=== PATIENT | female | born 2000 | race Hispanic/Latino ===

== ENCOUNTER 2024-06-06 12:31 | Emergency (ER) | payer OTHER, BC ==
[~2024-06-06] VITALS: Ht 154.9 cm; Wt 81.6 kg
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
[2024-06-06] MEDS ORDERED: IBUP-2077 PO (15:49)
[2024-06-06 16:49] VITALS: BP 124/78; PULSE 62; RESP 18; TEMP 97.6; O2SAT 97
[2024-06-06] MEDS: acetaMINOPHEN 500 MG TABLET PO ONE (16:57)
== END 2024-06-06 17:16 | disposition home or self-care (01) ==
LOC: EDH 12:31
DX: S39.012A Strain of muscle, fascia and tendon of lower back, initial encounter (principal); S80.811A Abrasion, right lower leg, initial encounter; S50.811A Abrasion of right forearm, initial encounter; Z79.899 Other long term (current) drug therapy; V49.9XXA Car occupant (driver) (passenger) injured in unspecified traffic accident, initial encounter; Y93.89 Activity, other specified; Y92.488 Other paved roadways as the place of occurrence of the external cause; Y99.8 Other external cause status
CPT/HCPCS: 36415; 72100; 84703; 99284

== ENCOUNTER 2024-09-07 11:46 | Emergency (ER) | payer OTHER, BC ==
[~2024-09-07] VITALS: Ht 157.5 cm; Wt 79.4 kg
[~2024-09-07 11:46] MED LIST: IBUP-2077 PO
[2024-09-07 11:50] VITALS: BP 114/72
[2024-09-07 12:40] LABS: BASOPHILS # (AUTO) 0.01 K/uL (0.00-0.20); BASOPHILS % (AUTO) 0.1 % (0.0-5.0); EOSINOPHILS # (AUTO) 0.04 K/uL (0.00-0.70); EOSINOPHILS % (AUTO) 0.5 % (0.0-8.0); HEMATOCRIT 41.6 % (36-48); IMMATURE GRANULOCYTE ABSOLUTE 0.02 K/uL (0-1); LYMPHOCYTES # (AUTO) 1.9 K/uL (1.0-4.8); LYMPHOCYTES % (AUTO) 25.3 % (21.0-51.0); MEAN CORPUSCULAR HEMOGLOBIN 28.6 pg (27.0-33.0); MEAN CORPUSCULAR HGB CONC 33.2 g/dL (32.0-36.0); MEAN CORPUSCULAR VOLUME 86.1 fL (79-99); MONOCYTES # (AUTO) 0.5 K/uL (0.1-1.0); MONOCYTES % (AUTO) 6.5 % (3.0-13.0); NEUTROPHILS % (AUTO) 67.3 % (40.0-77.0); PLATELET COUNT (AUTO) 280 K/uL (130-400); RED BLOOD CELL COUNT(AUTO) 4.83 MIL/uL (4.00-5.50); RED CELL DISTRIBUTION WIDTH 12.9 % (11.0-15.5); WHITE BLOOD COUNT (AUTO) 7.4 K/uL (4.8-10.8)
[2024-09-07 12:41] LABS: APPEARANCE,URINE CLEAR (CLEAR); BILIRUBIN,URINE NEGATIVE (NEGATIVE); COLOR,URINE COLORLESS (YELLOW); GLUCOSE, URINE (UA) NEGATIVE (NEGATIVE); KETONES,URINE NEGATIVE (NEGATIVE); LEUKOCYTE ESTERASE ,URINE NEGATIVE Leu/uL (NEGATIVE); NITRATE,URINE NEGATIVE (NEGATIVE); OCCULT BLOOD,URINE MODERATE (NEGATIVE); PH,URINE 6.5 (5.0-8.0); PROTEIN,URINE NEGATIVE (NEGATIVE); UROBILINOGEN,URINE 0.2 mg/dL (0.2-1.0)
[2024-09-07 12:46] LABS: ADD UA MICROSCOPIC YES
[2024-09-07 12:49] LABS: CREATININE 0.8 mg/dL (0.5-1.0); POTASSIUM 3.8 mmol/L (3.5-5.1)
[2024-09-07 13:00] LABS: SQUAMOUS EPITHELIAL CELL,UR RARE /HPF (0-2)
--- NOTE | 2024-09-07 13:10 | HMCIMG ---
Exam Type: US OB <14 WEEKS Clinical Information: vaginal bleeding 7 weeks gestation Comparison: None Findings: The uterus is normal in size and echogenicity. The endometrial lining is normal in thickness. No intrauterine or ectopic seen. The ovaries are normal in size and echogenicity. Vascular Doppler flow exam and spectral analysis of waveforms analysis is unremarkable bilaterally. There is preserved vascularity to both ovaries on Doppler evaluation. Specifically, there is no evidence of ovarian torsion. No free fluid is noted throughout the cul-de-sac. There are no adnexal abnormalities. No other significant abnormalities are seen. No fluid collections or masses or free fluid are identified in the pelvis. Impression: NORMAL EXAM. No evidence of uterine pathology. No evidence of adnexal abnormalities or ovarian torsion. No intrauterine or ectopic seen.
--- NOTE | 2024-09-07 13:28 | ERN ---
ED Note History of Present Illness Stated Complaint: VAGINAL BLEEDING Chief Complaint: Vaginal Bleeding Time Seen by MD: 11:59 Time Seen by Midlevel: 12:00 Dictation: 23-year-old female with no past medical history coming in with complaints of vaginal bleeding onset Thursday. Patient states she thinks he is seven weeks , LMP 07/20/2023. Patient states on Thursday it was light pink then it turned into brown spotting and then dark red today along with pelvic pain. Patient states he has not seen an OBGYN but has a appointment with the OBGYN next week. 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 06/06/24 Past Medical History Past Medical History: No Pertinent History Surgical History: None History: Not Applicable Review of System Dictation Constitutional: Negative for fever,chills, and weight loss Eyes: Negative for injury, pain,redness, and discharge ENT: Negative for injury,pain or swelling Cardiovascular: Negative for chest pain, palpitations, and edema Respiratory: Negative for shortness of breath, cough, and wheezing, Abdomen/GI: Negative for abdominal pain, nausea, vomiting, diarrhea, and constipation Back: Negative for injury and pain : Vaginal bleeding MS/Extremity: Negative for injury and deformity Skin: Negative for rash, and discoloration Neuro: Negative for headache, weakness, numbness, tingling, and seizure Psych: Negative for suicide ideation, homicidal ideation, and hallucinations Review of Systems: was completed Initial Vital Sign VS Vital Signs Date Time Temp Pulse Resp B/P (MAP) Pulse Ox O2 Delivery O2 Flow Rate FiO2 09/07/24 11:50 98.6 56 16 114/72 100 Room Air Physical Exam Dictation General: awake, alert, NAD Head/Face: Normocephalic, atraumatic Eyes: PERRL, EOMI, vision at baseline ENT: oral cavity clear, TMs clear, no signs of infection Neck: Trachea midline, supple, no nuchal rigidity Cardiovascular: RRR, normal S1/S2, No MRGs, no JVD Respiratory: CTAB, no respiratory distress, No rales or wheezes Abdomen: Soft, non-tender, non-distended, normal bowel sounds, no guarding or rebound. Skin: Warm, dry, normal turgor, no rash MS/Extremity: Pulses equal, no cyanosis, neurovascular intact, FROM Neuro: COAx4, GCS 15, strength 5/5, CN 2-12 intact, normal cerebellar exam, normal gait, Psych: Normal behavior, mood, and affect normal Results (Laboratory/Radiology) Laboratory/Radiology Laboratory Tests Test 09/07/24 12:26 09/07/24 12:28 White Blood Count 7.4 K/uL (4.8-10.8) Red Blood Count 4.83 MIL/uL (4.00-5.50) Hemoglobin 13.8 g/dL (12.0-16.0) Hematocrit 41.6 % (36-48) Mean Corpuscular Volume 86.1 fL (79-99) Mean Corpuscular Hemoglobin 28.6 pg (27.0-33.0) Mean Corpuscular Hemoglobin Concent 33.2 g/dL (32.0-36.0) Red Cell Distribution Width 12.9 % (11.0-15.5) Platelet Count 280 K/uL (130-400) Mean Platelet Volume 9.7 fL (7.5-10.5) Immature Granulocyte % (Auto) 0.3 % (0-1) Neutrophils (%) (Auto) 67.3 % (40.0-77.0) Lymphocytes (%) (Auto) 25.3 % (21.0-51.0) Monocytes (%) (Auto) 6.5 % (3.0-13.0) Eosinophils (%) (Auto) 0.5 % (0.0-8.0) Basophils (%) (Auto) 0.1 % (0.0-5.0) Neutrophils # (Auto) 5.0 K/uL (1.8-7.7) Lymphocytes # (Auto) 1.9 K/uL (1.0-4.8) Monocytes # (Auto) 0.5 K/uL (0.1-1.0) Eosinophils # (Auto) 0.04 K/uL (0.00-0.70) Basophils # (Auto) 0.01 K/uL (0.00-0.20) Absolute Immature Granulocyte (auto 0.02 K/uL (0-1) Nucleated Red Blood Cells 0.0 % (0.0-0.19) Sodium Level 134 mmol/L (136-145) L Potassium Level 3.8 mmol/L (3.5-5.1) Chloride Level 100 mmol/L (101-111) L Carbon Dioxide Level 28 mmol/L (21-32) Blood Urea Nitrogen 10 mg/dL (7-18) Creatinine 0.8 mg/dL (0.5-1.0) Glomerular Filtration Rate Calc 106 mL/min (>90) Random Glucose 76 mg/dL (70-105) Total Calcium 9.4 mg/dL (8.5-10.1) Human Chorionic Gonadotropin, Quant 1613 mIU/mL (0-5) H Urine Color COLORLESS (YELLOW) Urine Appearance CLEAR (CLEAR) Urine pH 6.5 (5.0-8.0) Urine Specific [place] 1.009 (1.001-1.031) Urine Protein NEGATIVE mg/dL (NEGATIVE) Urine Glucose (UA) NEGATIVE mg/dL (NEGATIVE) Urine Ketones NEGATIVE mg/dL (NEGATIVE) Urine Occult Blood MODERATE (NEGATIVE) H Urine Nitrate NEGATIVE (NEGATIVE) Urine Bilirubin NEGATIVE mg/dL (NEGATIVE) Urine Urobilinogen 0.2 mg/dL (0.2-1.0) Urine Leukocyte Esterase NEGATIVE Stefany/uL Urine RBC 2-5 /HPF (0-1) H Urine WBC 2-5 /HPF (0-1) H Urine Squamous Epithelial Cells RARE /HPF (0-2) Urine Bacteria None /HPF (None Seen) Labs Reviewed?: Yes ED Course ED Course Orders Procedure Category Date Status Time Cbc With Differential LAB 09/07/24 Complete 12: Basic Metabolic Panel LAB 09/07/24 Complete 12:07 Hcg,Quantitative LAB 09/07/24 Complete 12: Us Ob <14 Weeks US 09/07/24 Resulted 12:07 Urinalysis Profile LAB 09/07/24 Complete 12:07 Vital Signs Date Time Temp Pulse Resp B/P (MAP) Pulse Ox O2 Delivery O2 Flow Rate FiO2 09/07/24 11:50 98.6 56 16 114/72 100 Room Air Medical Decision Making MDM MDM: 23-year-old female with no past medical history coming in with complaints of vaginal bleeding onset Thursday. Patient states she thinks he is seven weeks , LMP 07/20/2023. Patient states on Thursday it was light pink then it turned into brown spotting and then dark red today along with pelvic pain. Patient states he has not seen an OBGYN but has a appointment with the OBGYN next week.CBC shows no leukocytosis, no anemia, no thrombocytopenia. Chemistry shows mild hyponatremia at 134. Normal kidney function. HCG is 1613. UA shows no evidence of urinary tract infection. Ultrasound shows no IUP or ectopic seen. Discussed with the patient extensively at this could be early needs to be follow up with OBGYN. Patient verbalized understanding, answered all questions. Differential diagnosis: Early , threatened , subchorionic bleed Rationale: Tests considered and ordered secondary to shared decision making include: Previous outside records reviewed: Old ER visits. Risk of complication and/or morbidity or mortality of patient management: None Medications-Per medication reconciliation Need for hospitalization: Patient does not meet criteria for hospitalization. Need for emergency major/minor surgery: No There are no social concerns with this patient. Prescription drug management Prescriptions will include symptomatic care Patient's prior external medical records from other ER visits were reviewed by me as indicated. Prior testing and results from previous visits were reviewed. Prior tests were taken into account with medical decision making and resource utilization, independent historian/historians were used to obtain complete medical history. I independently interpreted the test that were performed, results were reviewed by me and considered findings on radiology if ordered. Medical management and examination interpretation discussions were had by me with other qualified healthcare professionals as indicated for the patient's care. DX & DISP Disposition: Discharge Departure Impression: Primary Impression: Early stage of Additional Impression: Threatened Condition: Stable Additional Instructions: Please follow up with your OBGYN. If you have any worsening symptoms please follow up in an emergency room that has a obstructive services. Referrals: SELF,REFERRAL (PCP) Time of Disposition: 13:28 I have reviewed the case, and I agree with, Diagnosis and Plan AYLIN CARROLL NP September 07, 2024 13:28
[2024-09-07 14:12] VITALS: PULSE 99; RESP 16; TEMP 98; O2SAT 98
== END 2024-09-07 14:19 | disposition home or self-care (01) ==
LOC: EDH 11:46
DX: O20.0 Threatened abortion (principal); Z3A.01 Less than 8 weeks gestation of pregnancy; Z79.899 Other long term (current) drug therapy
CPT/HCPCS: 36415; 76801; 80048; 81001; 84702; 85025; 99284